=== PATIENT | female | born 1985 | race American Indian/Alaskan Native ===

== ENCOUNTER 2021-09-19 11:09 | Day surgery (SDC) | payer OTHER ==
[2021-09-19] MEDS ORDERED: FERRIC CARBOXYMALTOSE 750 MG in SODIUM CHLORIDE 250 ML IVPB ONE (12:00)
[2021-09-19 12:13] VITALS: PULSE 72; TEMP 97.6
[2021-09-19 12:44] VITALS: BP 123/68
== END 2021-09-19 12:48 | disposition home or self-care (01) ==
LOC: FINFUSION 11:09 → FM/S 11:10 → FINFUSION 12:48
PROVIDERS: ATTEND Family Medicine
PROC: 3E033GC Introduction of Other Therapeutic Substance into Peripheral Vein, Percutaneous Approach (ICD-10-PCS; principal; 2021-09-19)
DX: D50.9 Iron deficiency anemia, unspecified (principal)
CPT/HCPCS: 96365; J1439

== ENCOUNTER 2021-09-28 11:57 | Day surgery (SDC) | payer OTHER ==
[2021-09-28] MEDS ORDERED: FERRIC CARBOXYMALTOSE 750 MG in SODIUM CHLORIDE 250 ML IVPB SCH (12:15)
[2021-09-28 13:08] VITALS: TEMP 97.8
[2021-09-28 13:56] VITALS: BP 122/80; PULSE 74
== END 2021-09-28 14:33 | disposition home or self-care (01) ==
LOC: FINFUSION 11:57 → FM/S 12:02 → FINFUSION 14:33
PROVIDERS: ATTEND Family Medicine
PROC: 3E033GC Introduction of Other Therapeutic Substance into Peripheral Vein, Percutaneous Approach (ICD-10-PCS; principal; 2021-09-28)
DX: D50.9 Iron deficiency anemia, unspecified (principal)
CPT/HCPCS: 81025; 96365; J1439

== ENCOUNTER 2022-02-03 07:00 | Emergency (ER) | payer OTHER ==
[2022-02-03 07:31] VITALS: BP 150/98; PULSE 86; RESP 17; TEMP 98.4; BMI 25.3
[2022-02-03] MEDS ORDERED: ACETAMINOPHEN 1000 MG/100 ML BAG IVPB ONE (08:29)
[2022-02-03] MEDS ORDERED: LIDOCAINE 5% TOPICAL PATCH TP ONE (08:30)
[2022-02-03] MEDS ORDERED: ACETAMINOPHEN 325 MG TABLET (FP) PO ONE (08:35)
[2022-02-03] MEDS ORDERED: ACETAMINOPHEN 325 MG TABLET (FP) ONE (08:35)
[2022-02-03] MEDS ORDERED: LIDOCAINE 5% TOPICAL PATCH ONE (09:15)
[2022-02-03 09:22] LABS: EPI CELLS 27 /uL (0-25.1); HYALINE CASTS 2 /uL (0-3.1); PH,URINE 5.5 (5.0-8.0); URINE APPEARANCE CLEAR; URINE BACTERIA 392 /uL (0-1359); URINE BILIRUBIN NEGATIVE (NEGATIVE); URINE COLOR YELLOW; URINE GLUCOSE (UA) NEGATIVE (NEGATIVE); URINE KETONE TRACE (NEGATIVE); URINE LEUK ESTERASE TRACE (NEGATIVE); URINE NITRITE NEGATIVE (NEGATIVE); URINE PROTEIN NEGATIVE (NEGATIVE); URINE RBC 4 /uL (0-23.9); URINE UROBILINOGEN 0.2 mg/dL (0.2-1.0); URINE WBC 29 /uL (0-25.8)
[2022-02-03 09:28] LABS: HCG,QUALITATIVE URINE Negative
[2022-02-03] MEDS ORDERED: LIDOCAINE PATCH REMOVAL MC SCH (22:00)
== END 2022-02-03 11:36 | disposition home or self-care (01) ==
LOC: JER 07:00
DX: M54.50 Low back pain, unspecified (principal); N30.00 Acute cystitis without hematuria
CPT/HCPCS: 72100-TC-FY; 81003; 84703; 87086; 99284-25